=== PATIENT | female | born 1980 | race Caucasian/White ===

== ENCOUNTER 2017-04-28 14:23 | Emergency (ER) | payer MEDICAID ==
[~2017-04-28] VITALS: Ht 160 cm; Wt 114.0 kg
[~2017-04-28 14:23] MED LIST: CYCL-1 PO; HYDR-3965 PO; HYDR-569 PO; ONDA8TAB9 PO; PENI500T2 PO
[2017-04-28 14:33] VITALS: BP 152/79
[2017-04-28] MEDS ORDERED: IBUP-1984 PO (15:37)
[2017-04-28] MEDS ORDERED: CYCL-1 PO (15:37)
== END 2017-04-28 15:50 | disposition home or self-care (01) ==
LOC: ER 14:24
DX: M54.9 Dorsalgia, unspecified (principal); M25.562 Pain in left knee; E78.00 Pure hypercholesterolemia, unspecified; I10 Essential (primary) hypertension; G89.29 Other chronic pain; Z98.51 Tubal ligation status; Z88.5 Allergy status to narcotic agent; Z79.2 Long term (current) use of antibiotics
CPT/HCPCS: 99283

== ENCOUNTER 2017-11-17 08:27 | Emergency (ER) | payer MEDICAID ==
[~2017-11-17] VITALS: Ht 162.6 cm; Wt 118.7 kg
[2017-11-17 09:14] LABS: URINE HCG NEGATIVE (NEG)
[2017-11-17] MEDS ORDERED: ondansetron/PF 4mg/2ml inj IV ONE ×2 (09:20→11:15)
[2017-11-17 09:21] LABS: CLARITY,URINE CLOUDY (Clear); COLOR,URINE YELLOW (Yellow); GLUCOSE, URINE NEGATIVE (Neg); KETONES,URINE NEGATIVE (Neg); LEUKOCYTE ESTERASE ,URINE MODERATE (Neg); NITRITES, URINE NEGATIVE (Neg); OCCULT BLOOD,URINE NEGATIVE (Neg); PROTEIN,URINE TRACE mg/dl (Neg)
[2017-11-17 09:23] LABS: UA COLLECTION TYPE CLN CATCH MIDSTREAM
[2017-11-17 09:33] LABS: BASOPHILS % (AUTO) 0.5 % (0-1); EOSINOPHILS # (AUTO) 0.1 X10'3 (0-0.9); EOSINOPHILS % (AUTO) 1.1 % (0-6); HEMATOCRIT 38.4 % (35.0-45.0); HEMOGLOBIN 13.3 g/dl (12.0-16.0); LYMPHOCYTES # (AUTO) 1.4 X10'3 (1.1-4.8); LYMPHOCYTES % (AUTO) 15.9 % (21-51); MEAN CORPUSCULAR HEMOGLOBIN 31.5 PG (27.0-31.0); MEAN CORPUSCULAR HGB CONC 34.8 % (33.0-36.5); MEAN CORPUSCULAR VOLUME 90.5 FL (78-98); MONOCYTES # (AUTO) 0.6 X10'3 (0-0.9); MONOCYTES % (AUTO) 6.7 % (2-12); NEUTROPHILS # (AUTO) 6.7 X10'3 (1.8-7.7); NEUTROPHILS % (AUTO) 75.8 % (42-75); PLATELET COUNT 218 X10'3 (140-440); RED BLOOD COUNT 4.24 X10'6 (4.20-5.60); RED CELL DISTRIBUTION WIDTH 13.7 % (11.5-14.5); WHITE BLOOD COUNT 8.8 X10'3 (4.5-11.0)
[2017-11-17 09:39] LABS: MUCUS STRANDS MODERATE /LPF (Neg); SQUAMOUS EPITHELIAL CELL,UR MANY /LPF (FEW)
[2017-11-17 09:40] LABS: WBC,URINE 30-50 /HPF (0-4)
[2017-11-17 09:41] LABS: BACTERIA,URINE 1+ /HPF (Neg)
[2017-11-17 09:46] LABS: ALANINE AMINOTRANSFERASE 26 U/L (12-78); ALBUMIN 3.1 G/DL (3.4-5.0); ALBUMIN/GLOBULIN RATIO 0.9 (1.1-1.5); ALKALINE PHOSPHATASE 59 IU/L (46-116); ANION GAP 6 (8-16); ASPARTATE AMINO TRANSFERASE 14 U/L (10-37); BILIRUBIN,TOTAL 0.2 MG/DL (0.1-1.0); BLOOD UREA NITROGEN 8 MG/DL (7-18); BUN/CREATININE RATIO 11.3 (6.6-38.0); CALCIUM 8.3 MG/DL (8.5-10.1); CHLORIDE 102 MMOL/L (99-107); CREATININE 0.71 MG/DL (0.40-0.90); GLUCOSE 97 MG/DL (70-104); LIPASE 64 U/L (73-393); POTASSIUM 3.2 MMOL/L (3.5-5.1); SODIUM 138 MMOL/L (135-145); TOTAL CARBON DIOXIDE 30.2 MMOL/L (24-32); TOTAL PROTEIN 6.6 G/DL (6.4-8.2); eGFR > 90 ML/MIN
[2017-11-17] MEDS ORDERED: morphine 4 MG/ML inj SYRINge IV PRN (11:15)
[2017-11-17] MEDS ORDERED: METR500T PO (12:59)
[2017-11-17] MEDS ORDERED: CIPR-259 PO (12:59)
[2017-11-17 13:27] VITALS: BP 158/101
[2017-11-22] MEDS ORDERED: HYDR-3965 PO (13:16)
[2017-11-22] MEDS ORDERED: ONDA4TAB9 PO (13:16)
== END 2017-11-17 13:29 | disposition home or self-care (01) ==
LOC: ER 08:28
DX: K52.9 Noninfective gastroenteritis and colitis, unspecified (principal); I88.0 Nonspecific mesenteric lymphadenitis; M23.92 Unspecified internal derangement of left knee; I10 Essential (primary) hypertension; E78.00 Pure hypercholesterolemia, unspecified; G89.29 Other chronic pain; Z88.5 Allergy status to narcotic agent; Z88.6 Allergy status to analgesic agent; Z88.8 Allergy status to other drugs, medicaments and biological substances; Z79.899 Other long term (current) drug therapy
CPT/HCPCS: 29505; 36415; 73560; 74176; 76700; 80053; 81001; 81025; 83690; 85025; 96374; 96375; 99285; J2270; J2405; J7030

== ENCOUNTER 2017-12-09 10:26 | Outpatient (CLI) | payer MEDICAID ==
[~2017-12-09 10:26] MED LIST changes: +ONDA4TAB9 PO
== END 2017-12-09 23:59 | disposition home or self-care (01) ==
LOC: RAD 10:26
PROVIDERS: ATTEND Nurse Practitioner Family
DX: S83.242D Other tear of medial meniscus, current injury, left knee, subsequent encounter (principal); M25.462 Effusion, left knee; M22.42 Chondromalacia patellae, left knee; I10 Essential (primary) hypertension; F17.200 Nicotine dependence, unspecified, uncomplicated; Z98.51 Tubal ligation status; X58.XXXD Exposure to other specified factors, subsequent encounter
CPT/HCPCS: 73721

== ENCOUNTER 2017-12-28 08:56 | Outpatient (CLI) | payer MEDICAID ==
[2017-12-28 08:56] VITALS: BP 141/90
[~2017-12-28 08:56] MED LIST changes: +HYDR-4383 PO; -HYDR-569 PO; -ONDA4TAB9 PO
== END 2017-12-28 09:44 | disposition home or self-care (01) ==
LOC: ORTHO 08:56
PROVIDERS: ATTEND Nurse Practitioner Family
DX: S83.8X2D Sprain of other specified parts of left knee, subsequent encounter (principal); M22.42 Chondromalacia patellae, left knee; M25.462 Effusion, left knee; I10 Essential (primary) hypertension; F17.200 Nicotine dependence, unspecified, uncomplicated; Z98.51 Tubal ligation status; X58.XXXD Exposure to other specified factors, subsequent encounter
CPT/HCPCS: 99213

== ENCOUNTER 2018-01-21 18:48 | Emergency (ER) | payer MEDICAID ==
[~2018-01-21] VITALS: Ht 162.6 cm; Wt 116.2 kg
[2018-01-21 19:03] VITALS: BP 164/91
[2018-01-21] MEDS ORDERED: DICL50TA8 PO (19:48)
[2018-01-21] MEDS ORDERED: HYDROcodone/acetaminophen 5mg/325mg tablet PO ONE (19:50)
[2018-01-21] MEDS ORDERED: cyclobenzaprine 10mg tablet PO ONE (19:50)
[2018-01-21] MEDS ORDERED: CYCL-1 PO (19:53)
== END 2018-01-21 20:08 | disposition home or self-care (01) ==
LOC: ER 18:49
DX: M54.5 Low back pain (principal); M54.6 Pain in thoracic spine; I10 Essential (primary) hypertension; E78.00 Pure hypercholesterolemia, unspecified; G89.29 Other chronic pain; Z88.8 Allergy status to other drugs, medicaments and biological substances; Z98.51 Tubal ligation status; Z87.440 Personal history of urinary (tract) infections
CPT/HCPCS: 99283

== ENCOUNTER 2018-01-22 11:08 | Emergency (ER) | payer MEDICAID ==
[~2018-01-22] VITALS: Ht 162.6 cm; Wt 116.0 kg
[~2018-01-22 11:08] MED LIST changes: +DICL50TA8 PO
[2018-01-22] MEDS ORDERED: ketorolac trometh inj. 60 MG/2 ML VIAL IM ONE (12:10)
[2018-01-22] MEDS ORDERED: diazepam 5mg tablet PO ONE (12:10)
[2018-01-22] MEDS ORDERED: HYDROcodone/acetaminophen 5mg/325mg tablet PO ONE (12:10)
[2018-01-22 14:52] VITALS: BP 154/96
[2018-01-22 15:14] LABS: CLARITY,URINE CLOUDY (Clear); COLOR,URINE YELLOW (Yellow); GLUCOSE, URINE NEGATIVE (Neg); KETONES,URINE NEGATIVE (Neg); LEUKOCYTE ESTERASE ,URINE NEGATIVE (Neg); NITRITES, URINE POSITIVE (Neg); OCCULT BLOOD,URINE NEGATIVE (Neg); PROTEIN,URINE NEGATIVE (Neg); UROBILINOGEN,URINE 0.2 E.U/dL (0.2-1.0)
[2018-01-22 15:15] LABS: URINE HCG NEGATIVE (NEG)
[2018-01-22 15:22] LABS: UA COLLECTION TYPE CLN CATCH MIDSTREAM
[2018-01-22 15:27] LABS: MUCUS STRANDS FEW /LPF (Neg); SQUAMOUS EPITHELIAL CELL,UR MANY /LPF (FEW)
[2018-01-22 15:29] LABS: BACTERIA,URINE 4+ /HPF (Neg); RBC,URINE 0-2 /HPF (0-2)
== END 2018-01-22 15:20 | disposition short-term general hospital (02) ==
LOC: ER 11:09
DX: G95.20 Unspecified cord compression (principal); M54.5 Low back pain; E78.00 Pure hypercholesterolemia, unspecified; I10 Essential (primary) hypertension; G89.29 Other chronic pain; F41.9 Anxiety disorder, unspecified; F32.9 Major depressive disorder, single episode, unspecified; F17.200 Nicotine dependence, unspecified, uncomplicated; Z98.51 Tubal ligation status; Z88.8 Allergy status to other drugs, medicaments and biological substances
CPT/HCPCS: 72148; 81001; 81025; 96372; 99285; J1885

== ENCOUNTER 2019-01-13 21:04 | Emergency (ER) | payer MEDICAID ==
[~2019-01-13] VITALS: Ht 162.6 cm; Wt 120.0 kg
[2019-01-13] MEDS ORDERED: normal saline 1000ML IV soln IVB ONE (21:55)
[2019-01-13] MEDS ORDERED: ondansetron/PF 4mg/2ml inj IV ONE (21:55)
[2019-01-13] MEDS ORDERED: morphine 4 MG/ML inj SYRINge IV ONE (21:55)
[2019-01-13 22:13] LABS: BASOPHILS # (AUTO) 0.1 X10'3 (0-0.2); BASOPHILS % (AUTO) 0.9 % (0-1); EOSINOPHILS # (AUTO) 0.5 X10'3 (0-0.9); EOSINOPHILS % (AUTO) 3.5 % (0-6); HEMATOCRIT 44.6 % (35.0-45.0); HEMOGLOBIN 15.5 g/dl (12.0-16.0); LYMPHOCYTES % (AUTO) 26.2 % (21-51); MEAN CORPUSCULAR HEMOGLOBIN 32.1 PG (27.0-31.0); MEAN CORPUSCULAR HGB CONC 34.7 g/dL (33.0-36.5); MEAN CORPUSCULAR VOLUME 92.4 FL (78-98); MEAN PLATELET VOLUME 9.5 FL (7.4-10.4); MONOCYTES # (AUTO) 0.8 X10'3 (0-0.9); MONOCYTES % (AUTO) 5.4 % (2-12); NEUTROPHILS # (AUTO) 9.8 X10'3 (1.8-7.7); PLATELET COUNT 347 X10'3 (140-440); RED BLOOD COUNT 4.82 X10'6 (4.20-5.60); WHITE BLOOD COUNT 15.4 X10'3 (4.5-11.0)
[2019-01-13] MEDS ORDERED: iohexol 300mg/ml 100ml inj. ONE (22:13)
[2019-01-13 22:16] LABS: ALANINE AMINOTRANSFERASE 34 U/L (12-78); ALBUMIN 3.6 G/DL (3.4-5.0); ALBUMIN/GLOBULIN RATIO 0.9 (1.1-1.5); ALKALINE PHOSPHATASE 98 IU/L (46-116); ANION GAP 11 (8-16); ASPARTATE AMINO TRANSFERASE 15 U/L (10-37); BILIRUBIN,TOTAL 0.2 MG/DL (0.1-1.0); BLOOD UREA NITROGEN 15 MG/DL (7-18); CALCIUM 8.9 MG/DL (8.5-10.1); CHLORIDE 106 MMOL/L (99-107); CREATININE 0.88 MG/DL (0.40-0.90); GLUCOSE 108 MG/DL (70-104); POTASSIUM 3.5 MMOL/L (3.5-5.1); SODIUM 143 MMOL/L (135-145); TOTAL CARBON DIOXIDE 26.4 MMOL/L (24-32); TOTAL PROTEIN 7.5 G/DL (6.4-8.2); eGFR 73 ML/MIN
[2019-01-13 22:24] VITALS: BP 111/71
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
[2019-01-13] MEDS ORDERED: ketorolac trometh. 30mg/ml inj. IV ONE (23:30)
[2019-01-13 23:59] LABS: URINE HCG NEGATIVE (NEG)
[2019-01-14 00:25] LABS: CLARITY,URINE SLIGHTLY CLOUDY (Clear); COLOR,URINE YELLOW (Yellow); GLUCOSE, URINE NEGATIVE (Neg); KETONES,URINE NEGATIVE (Neg); LEUKOCYTE ESTERASE ,URINE NEGATIVE (Neg); NITRITES, URINE NEGATIVE (Neg); OCCULT BLOOD,URINE MODERATE (Neg); PROTEIN,URINE NEGATIVE (Neg); UROBILINOGEN,URINE 0.2 E.U/dL (0.2-1.0)
[2019-01-14 00:39] LABS: UA COLLECTION TYPE CLN CATCH MIDSTREAM
[2019-01-14 00:41] LABS: WBC,URINE 30-50 /HPF (0-4)
[2019-01-14 00:42] LABS: BACTERIA,URINE FEW /HPF (Neg); SQUAMOUS EPITHELIAL CELL,UR FEW /LPF (FEW)
[2019-01-14 00:43] LABS: MUCUS STRANDS FEW /LPF (Neg)
[2019-01-14] MEDS ORDERED: ONDA4TAB6 PO (00:59)
[2019-01-14] MEDS ORDERED: CEPH-572 PO (00:59)
[2019-01-14] MEDS ORDERED: PHEN-824 PO (01:01)
[2019-01-14] MEDS ORDERED: HYDR-4383 PO (01:01)
[2019-01-14] MEDS ORDERED: CefTRIAXone inj 1,000 MG in normal saline 50ml IV soln 50 ML IV ONE (01:05)
[2019-01-14] MEDS ORDERED: CefTRIAXone/D5W-Rocephin 1gm 50 ML IV ONE (01:10)
[2019-01-14] MEDS ORDERED: FLUC150T PO (01:11)
== END 2019-01-14 01:57 | disposition home or self-care (01) ==
LOC: ER 21:05
DX: N39.0 Urinary tract infection, site not specified (principal); E78.00 Pure hypercholesterolemia, unspecified; I10 Essential (primary) hypertension; G89.29 Other chronic pain; F41.9 Anxiety disorder, unspecified; F31.9 Bipolar disorder, unspecified; Z98.51 Tubal ligation status; Z88.8 Allergy status to other drugs, medicaments and biological substances; Z79.899 Other long term (current) drug therapy
CPT/HCPCS: 36415; 74177; 80053; 81001; 81025; 85025; 85610; 87077; 87088; 87186; 93005; 96365; 96375; 99284; J0696; J1885; J2270; J2405; J7030; Q9967; 81003

== ENCOUNTER 2019-11-19 02:54 | Emergency (ER) | payer MEDICAID ==
[~2019-11-19] VITALS: Ht 162.6 cm; Wt 99.5 kg
[~2019-11-19 02:54] MED LIST changes: +ONDA4TAB6 PO; +PHEN-824 PO
[2019-11-19] MEDS ORDERED: morphine 4 MG/ML inj SYRINge IV ONE ×2 (03:10→04:10)
[2019-11-19] MEDS ORDERED: ondansetron/PF 4mg/2ml inj IV ONE (03:10)
[2019-11-19 03:26] LABS: BASOPHILS % (AUTO) 0.3 % (0-1); EOSINOPHILS # (AUTO) 0.1 X10'3 (0-0.9); EOSINOPHILS % (AUTO) 0.8 % (0-6); HEMATOCRIT 33.7 % (35.0-45.0); HEMOGLOBIN 11.6 g/dl (12.0-16.0); LYMPHOCYTES # (AUTO) 1.4 X10'3 (1.1-4.8); MEAN CORPUSCULAR HEMOGLOBIN 31.1 PG (27.0-31.0); MEAN CORPUSCULAR HGB CONC 34.5 g/dL (33.0-36.5); MEAN CORPUSCULAR VOLUME 90.3 FL (78-98); MEAN PLATELET VOLUME 8.7 FL (7.4-10.4); MONOCYTES # (AUTO) 0.9 X10'3 (0-0.9); MONOCYTES % (AUTO) 5.7 % (2-12); NEUTROPHILS % (AUTO) 84.2 % (42-75); PLATELET COUNT 239 X10'3 (140-440); RED BLOOD COUNT 3.73 X10'6 (4.20-5.60); WHITE BLOOD COUNT 15.4 X10'3 (4.5-11.0)
[2019-11-19 03:44] LABS: ALANINE AMINOTRANSFERASE 23 U/L (12-78); ALBUMIN 2.4 G/DL (3.4-5.0); ALBUMIN/GLOBULIN RATIO 0.6 (1.1-1.5); ALKALINE PHOSPHATASE 74 IU/L (46-116); ANION GAP 6 (8-16); ASPARTATE AMINO TRANSFERASE 16 U/L (10-37); BILIRUBIN,TOTAL 0.3 MG/DL (0.1-1.0); BLOOD UREA NITROGEN 11 MG/DL (7-18); BUN/CREATININE RATIO 12.9 (6.6-38.0); CALCIUM 8.2 MG/DL (8.5-10.1); CHLORIDE 101 MMOL/L (99-107); CREATININE 0.85 MG/DL (0.40-0.90); GLUCOSE 141 MG/DL (70-104); LIPASE 85 U/L (73-393); SODIUM 136 MMOL/L (135-145); TOTAL PROTEIN 6.7 G/DL (6.4-8.2); eGFR 75 ML/MIN
[2019-11-19 03:45] LABS: POTASSIUM 2.5 MMOL/L (3.5-5.1)
[2019-11-19] MEDS ORDERED: potassium Cl 10 mEq/100mL bag IV ONE ×2 (03:50→03:55)
[2019-11-19] MEDS ORDERED: potassium Cl 20mEq in NS 1,000 ML IV ONE (03:55)
[2019-11-19] MEDS ORDERED: potassium CL 10mEq/100ml bag 100 ML IV ONE (04:00)
[2019-11-19] MEDS ORDERED: POTA20TA19 PO (04:43)
[2019-11-19] MEDS ORDERED: ONDA8TAB6 PO (04:43)
[2019-11-19] MEDS ORDERED: HYDR-3965 PO (04:43)
[2019-11-19 04:56] VITALS: BP 113/61
== END 2019-11-19 04:58 | disposition home or self-care (01) ==
LOC: ER 02:54
DX: E87.6 Hypokalemia (principal); K52.9 Noninfective gastroenteritis and colitis, unspecified; E78.00 Pure hypercholesterolemia, unspecified; I10 Essential (primary) hypertension; G89.29 Other chronic pain; F41.9 Anxiety disorder, unspecified; F31.9 Bipolar disorder, unspecified; Z98.51 Tubal ligation status; Z88.8 Allergy status to other drugs, medicaments and biological substances; Z79.899 Other long term (current) drug therapy
CPT/HCPCS: 36415; 74176; 80053; 83690; 85025; 96365; 96375; 96376; 99284; J2270; J2405; J3480

== ENCOUNTER 2019-12-06 22:57 | Emergency (ER) | payer MEDICAID ==
[~2019-12-06] VITALS: Ht 162.6 cm; Wt 104.0 kg
[~2019-12-06 22:57] MED LIST changes: +ONDA8TAB6 PO; +POTA20TA19 PO
[2019-12-06] MEDS ORDERED: HYDROcodone/acetaminophen 5mg/325mg tablet PO ONE (23:35)
[2019-12-07] MEDS ORDERED: ketorolac trometh. 30mg/ml inj. IV ONE (00:15)
[2019-12-07] MEDS ORDERED: HYDR-3965 PO (00:16)
[2019-12-07] MEDS ORDERED: ketorolac trometh. 30mg/ml inj. IM ONE (00:25)
[2019-12-07 00:31] VITALS: BP 150/96
== END 2019-12-07 00:42 | disposition home or self-care (01) ==
LOC: ER 22:57
DX: M25.551 Pain in right hip (principal); E78.00 Pure hypercholesterolemia, unspecified; I10 Essential (primary) hypertension; G89.29 Other chronic pain; F41.9 Anxiety disorder, unspecified; F31.9 Bipolar disorder, unspecified; Z98.51 Tubal ligation status; Z88.8 Allergy status to other drugs, medicaments and biological substances; Z79.899 Other long term (current) drug therapy
CPT/HCPCS: 73502; 96372; 99284; J1885

== ENCOUNTER 2022-04-02 14:42 | Emergency (ER) | payer MEDICAID ==
[~2022-04-02] VITALS: Ht 162.6 cm; Wt 72.0 kg
[~2022-04-02 14:42] MED LIST changes: -POTA20TA19 PO
[2022-04-02 14:47] VITALS: BP 177/117
[2022-04-02] MEDS ORDERED: GUAI120L55 PO (15:29)
== END 2022-04-02 15:47 | disposition home or self-care (01) ==
LOC: ER 14:42
DX: J06.9 Acute upper respiratory infection, unspecified (principal); E78.00 Pure hypercholesterolemia, unspecified; I10 Essential (primary) hypertension; G89.29 Other chronic pain; M54.9 Dorsalgia, unspecified; F31.9 Bipolar disorder, unspecified; Z88.8 Allergy status to other drugs, medicaments and biological substances; Z88.2 Allergy status to sulfonamides; Z79.899 Other long term (current) drug therapy; Z79.1 Long term (current) use of non-steroidal anti-inflammatories (NSAID); Z79.2 Long term (current) use of antibiotics
CPT/HCPCS: 99283

== ENCOUNTER 2022-06-11 09:10 | Emergency (ER) | payer MEDICAID ==
[~2022-06-11] VITALS: Ht 162.6 cm; Wt 77.0 kg
[~2022-06-11 09:10] MED LIST changes: +GUAI120L55 PO
[2022-06-11] MEDS ORDERED: IBUP-1986 PO (10:34)
--- NOTE | 2022-06-11 10:45 | NUR ---
Pt states that she is currently on hydrochlorathiazide and losartan for blood pressure control. She had an increase in her dose 3 days ago.
[2022-06-11 10:47] VITALS: BP 205/132
== END 2022-06-11 10:49 | disposition home or self-care (01) ==
LOC: ER 09:11
DX: M25.561 Pain in right knee (principal); I10 Essential (primary) hypertension; E78.00 Pure hypercholesterolemia, unspecified; G89.29 Other chronic pain; M54.9 Dorsalgia, unspecified; F31.9 Bipolar disorder, unspecified; Z88.0 Allergy status to penicillin; Z88.6 Allergy status to analgesic agent; Z88.8 Allergy status to other drugs, medicaments and biological substances; Z88.2 Allergy status to sulfonamides; Z79.899 Other long term (current) drug therapy; Z79.1 Long term (current) use of non-steroidal anti-inflammatories (NSAID); Z79.2 Long term (current) use of antibiotics
CPT/HCPCS: 73564; 99284

== ENCOUNTER 2022-06-20 20:47 | Emergency (ER) | payer MEDICAID ==
[~2022-06-20] VITALS: Ht 162.6 cm; Wt 81.8 kg
[~2022-06-20 20:47] MED LIST changes: +IBUP-1986 PO
[2022-06-20 20:52] VITALS: BP 151/92
== END 2022-06-20 22:20 | disposition left against medical advice (07) ==
LOC: ER 20:48
DX: M25.569 Pain in unspecified knee (principal); Z53.21 Procedure and treatment not carried out due to patient leaving prior to being seen by health care provider
CPT/HCPCS: 99281

== ENCOUNTER 2022-06-24 19:38 | Emergency (ER) | payer MEDICAID ==
[~2022-06-24] VITALS: Ht 163.8 cm; Wt 81.8 kg
[2022-06-24 19:41] VITALS: BP 167/110
== END 2022-06-25 00:12 | disposition left against medical advice (07) ==
LOC: ER 19:39
DX: M25.561 Pain in right knee (principal); Z53.21 Procedure and treatment not carried out due to patient leaving prior to being seen by health care provider
CPT/HCPCS: 99281

== ENCOUNTER 2022-07-30 23:56 | Emergency (ER) | payer MEDICAID ==
[~2022-07-30] VITALS: Ht 162.6 cm; Wt 80.0 kg
[2022-07-30 23:58] VITALS: BP 140/64
[2022-07-31] MEDS ORDERED: NAPR-56 PO (03:34)
[2022-07-31] MEDS ORDERED: naproxen 500mg tablet PO ONE (03:35)
== END 2022-07-31 03:44 | disposition home or self-care (01) ==
LOC: ER 23:56
DX: M70.51 Other bursitis of knee, right knee (principal); E78.00 Pure hypercholesterolemia, unspecified; I10 Essential (primary) hypertension; F31.9 Bipolar disorder, unspecified; F17.200 Nicotine dependence, unspecified, uncomplicated; Z91.09 Other allergy status, other than to drugs and biological substances; Z88.8 Allergy status to other drugs, medicaments and biological substances; Z88.2 Allergy status to sulfonamides; Y93.89 Activity, other specified
CPT/HCPCS: 73564; 99283

== ENCOUNTER 2022-10-15 12:22 | Emergency (ER) | payer MEDICAID ==
[~2022-10-15] VITALS: Ht 163.8 cm; Wt 80.0 kg
[2022-10-15 12:27] VITALS: BP 202/129; PULSE 82; RESP 18; TEMP 99.1; O2SAT 100
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
[2022-10-15] MEDS ORDERED: TRAM50TA2 PO (13:32)
== END 2022-10-15 14:29 | disposition home or self-care (01) ==
LOC: ER 12:22
DX: M25.461 Effusion, right knee (principal); M25.561 Pain in right knee; E78.00 Pure hypercholesterolemia, unspecified; I10 Essential (primary) hypertension; F31.9 Bipolar disorder, unspecified; Z91.09 Other allergy status, other than to drugs and biological substances; Z88.2 Allergy status to sulfonamides; Z88.8 Allergy status to other drugs, medicaments and biological substances; Z79.1 Long term (current) use of non-steroidal anti-inflammatories (NSAID); Z79.2 Long term (current) use of antibiotics; Z79.899 Other long term (current) drug therapy; Z98.51 Tubal ligation status; Y08.89XA Assault by other specified means, initial encounter; Y93.89 Activity, other specified; Y92.89 Other specified places as the place of occurrence of the external cause; Y99.8 Other external cause status
CPT/HCPCS: 73564; 99283

== ENCOUNTER 2022-10-21 23:32 | Emergency (ER) | payer MEDICAID ==
[~2022-10-21 23:32] MED LIST changes: +TRAM50TA2 PO
--- NOTE | 2022-10-21 23:48 | NUR ---
Patient used restroom and walked immediately out of lobby after.
== END 2022-10-22 00:12 | disposition left against medical advice (07) ==
LOC: ER 23:32
DX: R05.9 Cough, unspecified (principal); R50.9 Fever, unspecified; Z53.21 Procedure and treatment not carried out due to patient leaving prior to being seen by health care provider